=== PATIENT | female | born 1990 | race Caucasian/White ===

== ENCOUNTER 2018-09-27 08:59 | Outpatient (CLI) | payer OTHER ==
[2018-09-27] MEDS ORDERED: ISOVUE-370 76%-LOCM 1 ML ONE (10:06)
--- NOTE | 2018-09-27 10:44 | CT ---
CT ABDOMEN AND PELVIS: 09/27/2018 HISTORY: Generalized abdominal pain for 2-3 months. COMPARISON: None. TECHNIQUE: Axial CT imaging obtained at 5 mm intervals, from the lung bases through the pubic symphysis, with IV and oral contrast. Coronal reformatted imaging obtained. FINDINGS: There is a pulmonary nodule in the right lower lobe, posteromedially, on image 16, measuring 7 mm. No free intraperitoneal air or fluid is evident. The liver, spleen, pancreas, gallbladder, adrenal glands, and kidneys are unremarkable. A 1.4 cm rim-enhancing lesion in the region of the left ovary suggests a collapsed cyst or dominant f ollicle. No evidence for bowel inflammatory change or obstruction. Appendix visualized and appears within nor mal limits. 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 No adenopathy is appreciated within the abdomen or pelvis. Osseous structures demonstrate no acute findings. IMPRESSION: Incidental note made of a 7 mm pulmonary nodule in the right lower lobe. Given size. full chest CT a dvised for full evaluation. The study appears otherwise unremarkable. POS: [facility]
== END 2018-09-27 09:00 | disposition home or self-care (01) ==
LOC: BICCT 08:59
PROVIDERS: ATTEND Family Medicine
DX: R10.84 Generalized abdominal pain (principal)
CPT/HCPCS: 74177

== ENCOUNTER 2018-10-11 07:25 | Outpatient (CLI) | payer OTHER ==
--- NOTE | 2018-10-11 09:36 | CT ---
NONCONTRAST CT THORAX: DATE: 10/11/2018. HISTORY: Pulmonary nodule followup evaluation. COMPARISON: 09/27/2018. FINDINGS: The previously described pleural-based pulmonary nodule posteromedial aspect of the right lung base. This pulmonary nodule measures slightly larger in size previously measuring 7 mm in maximal dimensio ns. Vessels extend up to this nodular density. No additional pulmonary nodule or mass is seen and t he lungs are otherwise clear bilaterally. There is soft tissue density in the anterior superior mediastinum likely related to residual thymus. Lack of intravenous contrast does limits evaluation of vascular structures and mediastinum, but no d efinite enlarged lymph nodes are seen. The osseous structures have a normal appearance. IMPRESSION: 1. Again noted is the nodular density at the posteromedial right lung base which measures slightly l arger in size on today's examination, but this may be related to slice selection. 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 A followup CT angiogram of the thorax is recommended in 3 months as this fredrick ot be definitely determined to represent a vascular malformation based on this nonenhanced CT scan ex amination 2. No additional pulmonary nodule or mass is seen within the lungs bilaterally. CODE T POS: [facility]
== END 2018-10-11 07:26 | disposition home or self-care (01) ==
LOC: BICCT 07:25
PROVIDERS: ATTEND Family Medicine
DX: R91.1 Solitary pulmonary nodule (principal); R91.8 Other nonspecific abnormal finding of lung field
CPT/HCPCS: 71250

== ENCOUNTER 2018-12-02 01:08 | Emergency (ER) | payer OTHER | END 2018-12-02 02:06 | disposition left against medical advice (07) | LOC: ERS 01:08 | DX: Z53.21 Procedure and treatment not carried out due to patient leaving prior to being seen by health care provider (principal) ==

== ENCOUNTER 2018-12-07 13:57 | Emergency (ER) | payer OTHER ==
[2018-12-07] MEDS ORDERED: Ondansetron PF 4 MG/2 ML Vial ONE (14:20)
[2018-12-07] MEDS ORDERED: Dicyclomine 20 MG TAB ONE (14:20)
[2018-12-07 14:35] LABS: Hemoglobin 14.5 g/dL (12.0-16.0); Mean Corpuscular HGB CONC 32.6 g/dL (32.0-36.0); Mean Corpuscular Hemoglobin 25.2 pg (27.0-31.0); Mean Corpuscular Volume 77.6 fL (78.0-98.0); Mean Platelet Volume 8.1 fL (7.4-10.4); Platelet Count 338 thou/uL (130-400); RBC Distribution Width 12.9 % (11.5-14.5); Red Blood Cell (RBC) Count 5.76 mill/uL (4.20-5.40); White Blood Cell (WBC) Count 19.7 thou/uL (4.8-10.8)
[2018-12-07 14:40] LABS: BHCG - Serum Negative (NEGATIVE); Pregs Control Background? CLEAR/WHITE (CLR/WHITE); Pregs Control Bar Appear? YES (CONTROL BAR)
[2018-12-07 14:52] LABS: ALT (SGPT) 16 U/L (8-55); AST (SGOT) 18 U/L (5-34); Albumin 4.8 g/dL (3.5-5.0); Alkaline Phosphatase 97 U/L (40-150); Anion Gap 16 mmol/L (10-20); BUN (Urea Nitrogen) 10 mg/dL (7.0-18.7); Bilirubin, Total 0.5 mg/dL (0.2-1.2); Calc. Creatinine Clearance 0 mL/min (70-130); Calcium 10.1 mg/dL (7.8-10.44); Carbon Dioxide 24 mmol/L (22-29); Chloride 102 mmol/L (98-107); Estimated GFR-MDRD 66; Globulin 3.7 g/dL (2.4-3.5); Glucose 110 mg/dL (70-105); Lipase 15 U/L (8-78); Potassium 3.8 mmol/L (3.5-5.1); Protein, Total 8.5 g/dL (6.0-8.3); Sodium 138 mmol/L (136-145)
[2018-12-07 15:00] LABS: Band 10 % (5-11); Eosinophils 1 % (0-10); Lymphocytes 3 % (21-51); MDiff Complete? YES; Monocytes 2 % (0-10); Neutrophil 84 % (42-75); Platelet Morphology Comment Appears Adequate
[2018-12-07] MEDS ORDERED: ISOVUE-370 76%-LOCM 1 ML ONE (15:37)
--- NOTE | 2018-12-07 16:08 | CT ---
CT OF ABDOMEN AND PELVIS PERFORMED WITH CONTRAST ENHANCEMENT: 12/07/18 HISTORY: Abdominal pain, diarrhea. COMPARISON: 09/27/18 study. The lung bases are clear of infiltrative process. The pleural based area of nodularity within the rig ht lower lobe is stable. The liver, spleen, pancreas and gallbladder regions appear unremarkable. Right and left adrenal gland s and right and left kidneys are normal in size and appearance. No significant periaortic adenopathy. Of incidental note is that the left lower extremity venous drainage is via left sided IVC joining wi th the left renal vein and then subsequently joining with the right sided IVC. No significant mesente anil adenopathy is appreciated. There is some fluid within the small bowel loops, not distended. There is also fluid within the colon consistent with the history of diarrhea. This would suggest a mild en teritis. No pneumatosis identified. No free fluid or inflammatory change. CT OF PELVIS PERFORMED WITH CONTRAST ENHANCEMENT: Appendix is difficult to identify but I do not see any inflammatory process. Endometrium is slightly thickened related to stage of menstrual cycle. Review of osseous structures showed no findings. IMPRESSION: Findings that would suggest a mild enteritis. Otherwise unremarkable CT of abdomen and pelvis. POS: [facility]
== END 2018-12-07 17:40 | disposition home or self-care (01) ==
LOC: ERS 13:57
DX: R10.11 Right upper quadrant pain (principal); R19.7 Diarrhea, unspecified
CPT/HCPCS: 74177; 80053; 83690; 84703; 85025; 85379; 87045; 87046; 87449; 87899; 93005; 96361; 96372; 96374; J0500; J2405; Q9966

== ENCOUNTER 2019-04-23 15:35 | Outpatient (CLI) | payer OTHER ==
--- NOTE | 2019-04-23 16:59 | ULT ---
EXAM: OB ultrasound COMPARISON: None HISTORY: Intrauterine gestation. Evaluate anatomy. TECHNIQUE: Multiplanar grayscale and color Doppler transabdominal sonographic images are obtained. FINDINGS: There is a single intrauterine gestation in cephalic presentation. Cardiac Doppler demonstr ates heart tones with a heart rate of 146 beats per minute. The placenta is located anteriorly and is low lying. Subjectively, there is a normal amount of amniotic fluid. The cervical l ength based on transabdominal imaging measures 3.04 centimeters. biometry measurements: BPD 4.2 cm -- 18 weeks 6 days HC 15.7 cm -- 18 weeks 5 days AC 11.92 cm -- 17 weeks 5 days FL 2.68 cm -- 18 weeks 2 days The estimated gestational age by ultrasound is 18 weeks 3 days with an MOE on09/21/2019. Gestational a ge by the last menstrual period is 18 weeks 1 day. The estimated weight by ultrasound is 218 g (8 ounces). This represents 35 percentile for weight. A 4 chambered heart is visualized. The cerebellum, visualized portions of the spine, kidneys, u rinary bladder, and cord insertion demonstrate a normal sonographic appearance. A three-vessel cord is not visualized, but there is flow on either side of the urinary bladder sugges ting a three-vessel cord.. No anomalies are seen. IMPRESSION: 1. Low-lying placenta. Follow-up evaluation in 4-6 weeks is recommended. 2. Single intrauterine gestation in cephalic presentation with heart tones documented. Estimat ed gestational age by ultrasound is 18 weeks 3 days. 3. Estimated weight is 218 g (8 ounces).
== END 2019-04-23 15:36 | disposition home or self-care (01) ==
LOC: BICULT 15:35
PROVIDERS: ATTEND Family Medicine
DX: Z34.02 Encounter for supervision of normal first pregnancy, second trimester (principal); Z3A.18 18 weeks gestation of pregnancy
CPT/HCPCS: 76805

== ENCOUNTER 2019-07-02 15:50 | Outpatient (CLI) | payer OTHER ==
--- NOTE | 2019-07-02 16:35 | ULT ---
Exam: Limited OB ultrasound COMPARISON: 04/23/2019 HISTORY: Low-lying placenta FINDINGS: Presentation: Vertex Placenta: Anterior fundal. Placental margin does not appear to be near the lower uterine segment. Cervical length: 3.4 cm. heart tones: 149 bpm. Amniotic fluid: 9 cm IMPRESSION: 1. Vertex presentation. 2. Cervical length is 3.4 cm 3. Anterior fundal placenta. No evidence of low-lying placenta. 4. heart tones with a rate of 149 bpm.
== END 2019-07-02 15:51 | disposition home or self-care (01) ==
LOC: BICULT 15:50
PROVIDERS: ATTEND Family Medicine
DX: O44.42 Low lying placenta NOS or without hemorrhage, second trimester (principal)
CPT/HCPCS: 76815

== ENCOUNTER 2019-08-30 06:31 | Day surgery (SDC) | payer OTHER ==
[2019-08-30 07:13] VITALS: BP 118/81; TEMP 98.4; BMI 35.1
[2019-08-30] MEDS ORDERED: hydrALAZINE 20 MG/ML VIAL SLOW IVP PRN (07:27)
[2019-08-30] MEDS ORDERED: Lactated Ringer's 1,000 ML IV SCH (07:30)
[2019-08-30] MEDS: diphenhydrAMINE 50 MG/ML VIAL IVP PRN ×2 (07:40→09:37)
[2019-08-30] MEDS: Metoclopramide HCl 10 MG/2 ML VIAL IVP PRN ×2 (07:41→09:37)
--- NOTE | 2019-08-30 09:39 | HP ---
TIME: Roughly 09:10. LOCATION: Triage bed A. CHIEF COMPLAINT: Migraine history with acute flare/attack. HISTORY OF PRESENT ILLNESS: A 28-year-old , G1, P0, at 36 weeks and 4 days, dated by first trimester ultrasound, who is here with a complaint of migraine history that did not resolve with her own regimen at home. Her regimen includes Tylenol which she took x2 and a cold compress to her back of the neck which did not improve. She has good movement. No contractions. No leakage of fluid. No vaginal bleeding. No recent intercourse and no trauma. She states that she did not have nausea initially, but now has nausea as of this morning. She states that her pain was initially 8/10, but is now 2/10 (improving) after she has received Benadryl and Reglan prior to my arrival as ordered by Dr. Isabel, previously on-call. REVIEW OF SYSTEMS: Complete review of systems was checked and is otherwise negative unless specified in the HPI. PAST MEDICAL HISTORY: History of asymptomatic and stable pulmonary nodule, which they are following conservatively. PAST SURGICAL HISTORY: None. MEDICATIONS: 1. vitamins. 2. Fiber. 3. Vitamin B6 and Unisom combination p.r.n. ALLERGIES: NONE. SOCIAL HISTORY: Negative for alcohol, tobacco, or drug use. FAMILY HISTORY: Noncontributory. PHYSICAL EXAMINATION: GENERAL: She is in no acute distress. heart tones are in the 130s and they are reactive per criteria. VITAL SIGNS: The blood pressure is 118/81, her pulse is 77, respirations are 18 and unlabored, and she is afebrile. HEART: She has a regular rate and rhythm. CHEST: Clear to auscultation bilaterally. ABDOMEN: Gravid and size consistent. EXTREMITIES: Trace edema noted on exam. PELVIC: Deferred as there is no pelvic concern at this time. The monitor shows no evidence of contractions, and the FHTs are as previously stated and they are reactive. ASSESSMENT: This is a primigravida, who is in the late stage at 36 weeks and 4 days by good criteria, with a history of migraine that is improved with the migraine regimen. She is now at 2/10. No evidence of -induced hypertension/preeclampsia at this time. PLAN: 1. Continue monitoring. 2. No evidence of blood pressure emergency or issue at this time. 3. We will continue the expectant management with the use of Reglan and Benadryl as the atypical migraine regimen during . 4. No need for delivery at this time. 5. If symptoms worsen or persist, then we may consider imaging, but this does not seem to be likely at this time as her pain scale is now improved from admission. Job ID: [id number]
== END 2019-08-30 10:43 | disposition home or self-care (01) ==
LOC: L&D/OP 06:31
PROVIDERS: ATTEND Family Medicine
DX: O99.89 Other specified diseases and conditions complicating pregnancy, childbirth and the puerperium (principal); G43.909 Migraine, unspecified, not intractable, without status migrainosus; Z3A.36 36 weeks gestation of pregnancy
CPT/HCPCS: 96361; 96365; 96375; 99282; J1200; J2765

== ENCOUNTER 2019-09-08 15:06 | Day surgery (SDC) | payer OTHER ==
[2019-09-08 16:00] VITALS: BMI 36.1
--- NOTE | 2019-09-08 17:23 | ULT ---
ULTRASOUND BIOPHYSICAL PROFILE ULTRASOUND OBSTETRICAL LIMITED: DATE: 09/08/2019 HISTORY: Intrauterine growth retardation. Nonreactive stress test. FINDINGS: number: hermosillo lie: Vertex Maternal cervix: Poorly visualized. Placenta: Anterior and to the maternal right. No placenta previa. Amniotic fluid volume: PARDEEP = 6.5cm heart rate: 147 bpm The following anatomy is visualized, with no evidence of anomalies: Head, four-chamber heart, bladder, and three-vessel cord. The rest of the anatomy was not evaluated in detail. biometry: Biparietal diameter (BPD): 9.6 cm 39 w 0 d Head circumference (HC): 34.2 cm 39 w 3 d Abdominal circumference (AC): 29.4 cm 33 w 2 d Femur length (FL): 6.9 cm 35 w 2 d Average ultrasound age (AUA): 37 w 1 d Estimated date of delivery (MOE): 09/28/2019 Estimated weight (EFW): 2576 g +/- 381 g breathin tone: 2 movement: 2 Amniotic fluid volume: 2 IMPRESSION: 1) Live 3rd trimester intrauterine gestation. 2) Estimated gestational age of 37 weeks, 1 days 3) cephalic lie. 4) oligohydramnios 5) Normal biophysical profile score of 8 out of 8, excluding the nonstress test.
--- NOTE | 2019-09-09 02:22 | SS ---
DATE OF ADMISSION: 09/08/2019 DATE OF DISCHARGE: 09/08/2019 DISCHARGE DIAGNOSES: 1. 37-week 5-day intrauterine . 2. Asymmetrical intrauterine growth restriction. 3. Oligohydramnios. HOSPITAL COURSE: Bijal is a 28-year-old primigravida white female patient, followed in my clinic for her care, currently at 37 weeks 5 days gestation by LMP and nine-week ultrasound, who has been followed over the past week with a diagnosis of IUGR with borderline oligohydramnios. She was evaluated in the office today and noted to have a minimally reactive NST with an ultrasound with estimated weight between 3 and 10 percentile without weight gain from the previous ultrasound done one week prior. She was subsequently sent to labor and delivery for evaluation. PAST MEDICAL HISTORY: Insignificant. LABORATORY STUDIES: With care, all within normal limits. Otherwise, an uneventful course. In Labor and Delivery, she was placed on a prolonged NST, which was noted to be reactive. Biophysical profile was ordered with a report of 04/17 with an PARDEEP of 6.5. Estimated weight approximately 2400 g, most noted with a BPD of 39 weeks and head circumference 39 weeks and 3 days. Femur length 35 weeks, but abdominal circumference of 33 weeks with diagnosis of asymmetrical IUGR. As noted, PARDEEP of 6.5. Estimated weight of 2576 g. The patient's cervix noted to be fingertip, soft, mid position with minimal effacement. Case was discussed with Dr. Coleman, OB labor. Risks and options were discussed with the patient including admission for delivery at this time versus close observation with some natural cervical ripening with time. Precautions given to the patient. She would discontinue to work on modified bedrest with kick counts, and we will repeat a biophysical profile and NST in two days. Job ID: [id number]
== END 2019-09-08 18:30 | disposition home health service (06) ==
LOC: L&D/OP 15:06
PROVIDERS: ATTEND Family Medicine
DX: O36.5930 Maternal care for other known or suspected poor fetal growth, third trimester, not applicable or unspecified (principal); O41.03X0 Oligohydramnios, third trimester, not applicable or unspecified; Z3A.37 37 weeks gestation of pregnancy
CPT/HCPCS: 76815; 76819; 99282

== ENCOUNTER 2019-09-10 10:24 | Day surgery (SDC) | payer OTHER ==
[2019-09-10 11:04] VITALS: BP 119/77; TEMP 98.2
--- NOTE | 2019-09-10 12:50 | ULT ---
US Biophysical Profile: 09/10/2019 11:38 AM CLINICAL HISTORY: Intrauterine growth retardation. COMPARISON: 09/08/2019 FINDINGS: heart rate: 150 bpm. PARDEEP: 8.2 cm Biophysical profile: 8 of 8 IMPRESSION: Normal biophysical profile
== END 2019-09-10 12:45 | disposition home or self-care (01) ==
LOC: L&D/OP 10:24
PROVIDERS: ATTEND Family Medicine
DX: O36.5990 Maternal care for other known or suspected poor fetal growth, unspecified trimester, not applicable or unspecified (principal); Z3A.00 Weeks of gestation of pregnancy not specified; Z79.899 Other long term (current) drug therapy
CPT/HCPCS: 59025; 76819; 99282

== ENCOUNTER 2019-09-13 10:10 | Day surgery (SDC) | payer OTHER ==
[2019-09-13] MEDS ORDERED: hydrALAZINE 20 MG/ML VIAL SLOW IVP PRN (10:41)
[2019-09-13 11:01] VITALS: BP 130/83; TEMP 99.2; BMI 36.1
--- NOTE | 2019-09-13 11:11 | PDOC.FPRHP ---
- History of Present Illness Chief Complaint: NST monitoring History of Present Illness: 28 yo G1 at 38.4 here for BPP/NST for IUGR and oligohydramnios. Endorses FM, denies VB/VD/LOF. No other concerns at this time. - Allergies/Adverse Reactions Allergies Allergy/AdvReac Type Severity Reaction Status Date / Time No Known Drug Allergies Allergy Verified 09/13/19 11:01 - Home Medications Medication Instructions Recorded Confirmed Type Doxylamine [Unisom] 12.5 mg PO HS 08/30/19 09/13/19 History Vitamin 1 tab PO DAILY 08/30/19 09/13/19 History pyridOXINE [Vitamin B 6] 12.5 mg PO DAILY 08/30/19 09/13/19 History - History PMHx: PSHx: FHx: Social: - Vital signs BP: [] HR: [] RR: [] Tmax: [] Pox: []% on [] Wt: [] FMR H&P: Upper Level - Plan Date/Time: 09/13/19 1109 I, [], have evaluated this patient and agree with findings/plan as outlined by senior insight manager international resident. Pertinent changes/additions are listed here.
--- NOTE | 2019-09-13 11:14 | PDOC.FPROB ---
FMR OB H&P: HPI - History of Present Illness Chief Complaint: BPP/NST testing Indentification: G1 at 38.4 WGA here for BPP/NST testing History of Present Illness: 28 yo G1 at 38.4 WGA here for BPP/NST for IUGR. Endorses FM, denies VB/VD/LOF. No other concerns at this time. Primary Care Physician: Dr. Bijal Gomez FMR OB H&P: Current - Care : 1 Gestational age: 38.4 Due date: 09/23/19 - OB Labs Blood type: unknown RH: unknown Antibody Screen: unknown HIV: unknown RPR: unknown HepBsAg: unknown Quad screen: unknown Gonorrhea: unknown Chlamydia: unknown GBS: unknown FMR OB H&P: History - OB History OB History: First - Social History Social History: Denies TAD - Family History Family History: Non contributory FMR OB H&P: Medications - Current Home Medications: Medication Instructions Recorded Confirmed Type Doxylamine [Unisom] 12.5 mg PO HS 08/30/19 09/13/19 History Vitamin 1 tab PO DAILY 08/30/19 09/13/19 History pyridOXINE [Vitamin B 6] 12.5 mg PO DAILY 08/30/19 09/13/19 History Allergies/Adverse Reactions: Allergies Allergy/AdvReac Type Severity Reaction Status Date / Time No Known Drug Allergies Allergy Verified 09/13/19 11:01 FMR OB H&P: ROS - Review of Systems General: denies: fever/chills, weight/appetite/sleep changes Eyes: denies: eye pain, vision changes ENT: denies: nasal congestion, rhinorrhea, sore throat Cardiovascular: denies: chest pain, palpitation Respiratory: denies: cough, shortness of breath Gastrointestinal: denies: abdominal pain, nausea, vomiting Genitourinary (Female): denies: dysuria, hematuria Musculoskeletal: denies: pain, stiffness Integumentary: denies: rash, lesions Endocrine: denies: cold intolerance, heat intolerance Psychological: denies: depression, anxiety FMR OB H&P: Vital Signs - Maternal Vital signs: Vital Signs - First Documented Temp Pulse Resp BP 99.2 F 87 18 130/83 09/13/19 10:36 09/13/19 10:36 09/13/19 10:36 09/13/19 10:36 - Heart Tones Baseline: 150 Variability: moderate Acceleration: present Gautier contractions every: none FMR OB H&P: Physical Exam - Physical Exam General: NAD, awake, alert and oriented HEENT: normocephalic and atraumatic, EOMI, conjunctiva clear Neck: supple, trachea midline Heart: RRR, normal S1/S2, no murmurs/rubs/gallops General: CTAB, no respiratory distress, good air movement Abdomen: gravid, non-tender Musculoskeletal: pulses present, FROM in all four extremities Skin: good tugor, no jaundice Lymphatic: no unusual bruising or bleeding, no purpura FMR OB H&P: A/P - Problem List (1) with 38 completed weeks gestation Status: Acute Code(s): Z3A.38 - 38 WEEKS GESTATION OF (2) IUGR (intrauterine growth restriction) Status: Acute (3) Oligohydramnios Status: Acute Code(s): O41.00X0 - OLIGOHYDRAMNIOS, UNSP TRIMESTER, NOT APPLICABLE OR UNSP Discussion: Date/Time: 09/13/19 1112 1. sIUP at 38 weeks -No clinical signs of labor -Continue care with Dr. Gomez 2. IUGR -BPP/NST today -Scheduled induction on 09/15/19 This H&P was discussed with Dr. Sky Faria who agree with the above documentation and plan. Addendum - Attending - Attending Attestation Date/Time: 09/13/192049 I personally evaluated the patient and discussed the management with Dr. High. I agree with the History, Examination, Assessment and Plan documented above.
--- NOTE | 2019-09-13 12:07 | PDOC.EVN ---
Event Note - Event Note Event Note: FHT reactive & reassuring Prelim read on BPP 04/17 with PARDEEP ~11cm F/u on Sunday for appt with Dr. Bijal Gomez, elective induction that evening All questions answered
--- NOTE | 2019-09-13 12:13 | ULT ---
ULTRASOUND BIOPHYSICAL PROFILE: HISTORY: distress, IUGR FINDINGS: A single live intrauterine gestation is seen. heart rate:123bpm PARDEEP: 11.2 cm Placenta: Anterior without placenta previa OB biophysical profile: tone: 2 breathin movements: 2 Amniotic fluid: 2 IMPRESSION: The ultrasound biophysical profile score is 8 out of 8.
== END 2019-09-13 12:08 | disposition home or self-care (01) ==
LOC: L&D/OP 10:10
PROVIDERS: ATTEND Family Medicine
DX: O36.5930 Maternal care for other known or suspected poor fetal growth, third trimester, not applicable or unspecified (principal); O41.03X0 Oligohydramnios, third trimester, not applicable or unspecified; Z3A.38 38 weeks gestation of pregnancy; Z79.899 Other long term (current) drug therapy
CPT/HCPCS: 59025; 76819; 99282

== ENCOUNTER 2019-09-15 18:00 | Inpatient (IN) | payer OTHER ==
[~2019-09-15 18:00] MED LIST: Bupivacaine 0.25% HCL 30 ML VIAL ONE; Bupivacaine HCl 0.5%/Epinephrine 1:200,000/PF 30 ml Vial ONE
[2019-09-16] MEDS ORDERED: NS w/ Oxytocin 10 units 500 ML IV SCH (01:18)
[2019-09-16] MEDS ORDERED: Acetaminophen 500 MG TAB PO PRN (01:18)
[2019-09-16] MEDS ORDERED: Ondansetron PF 4 MG/2 ML Vial IVP PRN ×2 (01:18→08:44)
[2019-09-16] MEDS ORDERED: NS / Oxytocin 40 units/1000ml 1,000 ML IV PRN (01:18)
[2019-09-16] MEDS ORDERED: HYDROcodone/Acetaminophen 5/325 mg Tablet PO PRN (01:18)
[2019-09-16] MEDS ORDERED: Zolpidem Tartrate 5 MG TAB PO PRN (01:18)
[2019-09-16] MEDS ORDERED: Lidocaine 1% (PF) 30 ML VIAL SC PRN (01:18)
[2019-09-16] MEDS ORDERED: hydrALAZINE 20 MG/ML VIAL SLOW IVP PRN (01:18)
[2019-09-16] MEDS ORDERED: Ibuprofen 800 MG TAB PO PRN (01:18)
[2019-09-16] MEDS ORDERED: Methylergonovine 0.2 MG/ML VIAL IM PRN (01:18)
[2019-09-16] MEDS ORDERED: Promethazine HCl 25 MG/ML VIAL IM PRN ×2 (01:18→08:44)
[2019-09-16] MEDS ORDERED: Misoprostol 200 MCG TAB PR PRN (01:18)
[2019-09-16] MEDS ORDERED: Acetaminophen/Codeine 30-300mg Tablet PO PRN (01:18)
[2019-09-16] MEDS ORDERED: Butorphanol Tartrate 1 MG/ML VIAL SLOW IVP PRN (01:18)
[2019-09-16 02:01] LABS: Hemoglobin 12.5 g/dL (12.0-16.0); Mean Corpuscular HGB CONC 35.5 g/dL (32.0-36.0); Mean Corpuscular Hemoglobin 28.8 pg (27.0-31.0); Mean Platelet Volume 8.7 fL (7.4-10.4); Platelet Count 192 thou/uL (130-400); RBC Distribution Width 13.1 % (11.5-14.5); Red Blood Cell (RBC) Count 4.34 mill/uL (4.20-5.40); White Blood Cell (WBC) Count 12.7 thou/uL (4.8-10.8)
[2019-09-16] MEDS: Misoprostol 100 MCG TAB VAG SCH ×6 (02:11→16:42)
[2019-09-16] MEDS: Lactated Ringer's 1,000 ML IV SCH ×4 (02:14→21:42)
[2019-09-16 02:20] VITALS: BMI 36.1
[2019-09-16 02:39] LABS: HBSAg Index 0.31 S/CO (0-0.99); Hep B Surf Ag Non-Reactive S/CO (NonReactive)
[2019-09-16] MEDS: NS w/ Oxytocin 10 units 500 ML IV SCH ×2 (03:46→14:33)
[2019-09-16 04:31] LABS: Syphilis Antibody Nonreactive (Nonreactive); Syphilis Antibody Index 0.06 S/CO (<1.00 Non-Reactive)
[2019-09-16] MEDS ORDERED: Fentanyl 4 mcg/Bup 0.1% Cadd 100 ML ONE ×2 (08:10→15:56)
[2019-09-16] MEDS ORDERED: Acetaminophen 325 MG TAB PO PRN (08:44)
[2019-09-16] MEDS ORDERED: Naloxone HCl 0.4 mg/ml Vial IVP PRN ×2 (08:44)
[2019-09-16] MEDS ORDERED: diphenhydrAMINE 50 MG/ML VIAL IVP PRN (08:44)
[2019-09-16] MEDS ORDERED: Lactated Ringer's 500 ML IV PRN (08:44)
[2019-09-16] MEDS ORDERED: ePHEDrine/0.9% NaCl/PF SYRINGE 50 mg/10 ml SLOW IVP PRN (08:44)
[2019-09-16] MEDS ORDERED: Communication Order-Pharmacy FS SCH (08:45)
[2019-09-16] MEDS ORDERED: Fentanyl 4 mcg/Bupivacaine 0.1% Cassette 100 ML EPIDURAL SCH (08:45)
[2019-09-16] MEDS ORDERED: Fentanyl 100 MCG/2 ML VIAL ONE (19:19)
[2019-09-17] MEDS ORDERED: hydrALAZINE 20 MG/ML VIAL SLOW IVP PRN (02:43)
[2019-09-17] MEDS ORDERED: NS / Oxytocin 40 units/1000ml 1,000 ML IV SCH (02:43)
[2019-09-17] MEDS ORDERED: Bisacodyl 10 MG SUPP PR PRN (02:43)
[2019-09-17] MEDS ORDERED: Lanolin Ointment 7 GM TUBE TOP PRN (02:43)
[2019-09-17] MEDS ORDERED: HYDROcodone/Acetaminophen 5/325 mg Tablet PO PRN (02:43)
[2019-09-17] MEDS ORDERED: diphenhydrAMINE 25 MG CAP PO PRN (02:43)
[2019-09-17] MEDS ORDERED: Acetaminophen/Codeine 30-300mg Tablet PO PRN (02:43)
[2019-09-17] MEDS ORDERED: Milk Of Magnesia 30 ML UDCUP PO PRN (02:43)
[2019-09-17] MEDS ORDERED: traMADol HCl 50 MG TAB PO PRN (02:43)
[2019-09-17] MEDS ORDERED: Ondansetron PF 4 MG/2 ML Vial IVP PRN (02:43)
[2019-09-17] MEDS ORDERED: Benzocaine-Menthol 82.5 ML CAN TOP PRN (02:43)
[2019-09-17] MEDS: Ibuprofen 800 MG TAB PO SCH ×2 (10:03→17:05)
[2019-09-17] MEDS: Prenatal Vitamin 1 TAB PO SCH (10:03)
[2019-09-17] MEDS: Docusate Calcium (SURFAK) 240 MG CAP PO SCH ×2 (10:03→21:40)
[2019-09-17] MEDS: Ferrous Sulfate 325 MG TAB PO SCH ×2 (10:04→15:16)
[2019-09-17] MEDS: Misoprostol 100 MCG TAB VAG SCH ×2 (15:10→15:11)
[2019-09-18] MEDS: Ibuprofen 800 MG TAB PO SCH ×3 (00:02→13:28)
[2019-09-18 08:11] VITALS: BP 139/61; TEMP 97.8
[2019-09-18] MEDS: Prenatal Vitamin 1 TAB PO SCH (08:32)
[2019-09-18] MEDS: Docusate Calcium (SURFAK) 240 MG CAP PO SCH (08:32)
[2019-09-18] MEDS: Ferrous Sulfate 325 MG TAB PO SCH (08:33)
== END 2019-09-18 18:30 | disposition home or self-care (01) | DRG 806 ==
LOC: L&D 09-16 00:58 → 3SW 09-17 14:58
PROVIDERS: ADMIT Family Medicine; ATTEND Family Medicine
PROC: 10E0XZZ Delivery of Products of Conception, External Approach (ICD-10-PCS; principal; 2019-09-16)
PROC: 10907ZC Drainage of Amniotic Fluid, Therapeutic from Products of Conception, Via Natural or Artificial Opening (ICD-10-PCS; 2019-09-16)
PROC: 3E033VJ Introduction of Other Hormone into Peripheral Vein, Percutaneous Approach (ICD-10-PCS; 2019-09-16)
PROC: 3E0P7VZ Introduction of Hormone into Female Reproductive, Via Natural or Artificial Opening (ICD-10-PCS; 2019-09-16)
PROC: 0UQGXZZ Repair Vagina, External Approach (ICD-10-PCS; 2019-09-16)
DX: O36.5930 Maternal care for other known or suspected poor fetal growth, third trimester, not applicable or unspecified (principal); O41.03X0 Oligohydramnios, third trimester, not applicable or unspecified; Z37.0 Single live birth; O99.354 Diseases of the nervous system complicating childbirth; O99.52 Diseases of the respiratory system complicating childbirth; Z3A.39 39 weeks gestation of pregnancy; J45.20 Mild intermittent asthma, uncomplicated; G43.909 Migraine, unspecified, not intractable, without status migrainosus; Z79.899 Other long term (current) drug therapy
CPT/HCPCS: 36416; 51702; 59025; 76819; 85027; 86780; 86850; 86900; 86901; 87340; 88307; 99282; C1726; J0670; J2590; J3010; S0020

== ENCOUNTER 2019-11-04 09:21 | Outpatient (CLI) | payer OTHER ==
--- NOTE | 2019-11-04 10:14 | CT ---
EXAM: CTA of the chest HISTORY: Solitary pulmonary nodule COMPARISON: 10/11/2018 TECHNIQUE: Multiple contiguous axial images were obtained a CTA of the chest with contrast per pulmon jill embolism protocol. 3-D oblique MIP reformats and direct coronal reformats were performed. FINDINGS: HEART: Normal in size without focal cardiac abnormality. PULMONARY ARTERIES: Normal in caliber without filling defects to suggest pulmonary emboli. MEDIASTINUM: No hilar or mediastinal lymphadenopathy. LUNGS: There is a stable 8 to 9 mm area of nodularity peripherally in the right costophrenic angle. N o other pulmonary nodules are seen. PLEURAL SPACE: No pleural effusion or pneumothorax. CHEST WALL SOFT TISSUES: Unremarkable VISUALIZED OSSEOUS STRUCTURES: Unremarkable VISUALIZED SUBDIAPHRAGMATIC STRUCTURES: Unremarkable IMPRESSION: 1. No evidence of pulmonary thromboembolism 2. Stable nodularity in the right costophrenic angle
[2019-11-04] MEDS ORDERED: Iopamidol 370 76% 100 ML VIAL ONE (13:44)
== END 2019-11-04 09:22 | disposition home or self-care (01) ==
LOC: CT 09:21
PROVIDERS: ATTEND Family Medicine
DX: R91.1 Solitary pulmonary nodule (principal); R91.8 Other nonspecific abnormal finding of lung field
CPT/HCPCS: 71275; Q9967

== ENCOUNTER 2020-08-25 08:52 | Outpatient (CLI) | payer OTHER ==
--- NOTE | 2020-08-25 10:16 | ULT ---
COMPLETE ABDOMEN ULTRASOUND INDICATION: Periumbilical abdominal pain with diarrhea; history of gastroenteritis for 2 years TECHNIQUE: Grayscale, color Doppler and spectral Doppler were obtained of the abdomen. COMPARISON: None FINDINGS: Liver: Normal. Main portal vein: Patent with appropriate hepatopedal flow Pancreas: Visualized aspects appeared normal. Gallbladder: Normal. No sonographic Flores's sign reported. Common bile duct:2.5 mm. Right kidney: The right kidney measured 10.6 x 3.9 x 4.0 cm. No focal renal lesion or hydronephrosis is evident. Left kidney: The left kidney measured 10.2 x 3.7 x 4.3 cm. No focal renal lesion or hydronephrosis is demonstrated. Aorta and IVC: Appeared within normal limits. Spleen: 10.8cm in length. No focal splenic lesion is evident. Free fluid: None. IMPRESSION: 1. Normal sonographic evaluation of the abdomen
== END 2020-08-25 08:53 | disposition home or self-care (01) ==
LOC: BICULT 08:52
PROVIDERS: ATTEND Internal Medicine Gastroenterology
DX: R10.33 Periumbilical pain (principal); R11.0 Nausea; R19.7 Diarrhea, unspecified
CPT/HCPCS: 93975